=== PATIENT | born 1990 ===

== ENCOUNTER 2023-10-28 09:57 | Outpatient (NON) | payer BC, SELFPAY | END 2023-10-28 09:58 | disposition home or self-care (01) | PROVIDERS: Visit Provider Surgery Plastic and Reconstructive Surgery | DX: Q83.1 Accessory breast (principal); N60.11 Diffuse cystic mastopathy of right breast; N60.12 Diffuse cystic mastopathy of left breast | CPT/HCPCS: 88305 ==